=== PATIENT | female | born 1980 | race Caucasian/White ===

== ENCOUNTER 2024-08-23 12:37 | Outpatient (REF) | payer MEDICAID, SELFPAY ==
--- OUTSIDE RECORDS SUMMARY | 2024-08-23 12:42 | XMS_ITS | Encounter Summary ---
Author Organization [facility] Address [address] [place] [address] Care Team Providers Care Creative Intern Name Role Phone Krzysztof Espinal [employer] Primary Care Provider [phone] Encounter Details Date Type Department Care Team ([facility] st Contact Info) Description 08/18/2024 Interim Notes Caring [facility] Main [address] [place] [phone] Krzysztof Espinal NP [address] [place] [phone] Social History Tobacco Use Types Packs/Day Years Used Date Smoking Tobacco: Never Smokeless Tobacco: Never Alcohol Use Standard Drinks/Week Comments Never 0 (1 standard drink = 0.6 oz pur e alcohol) Social Connections Answer Date Recorded Connectedness 2 02/10/2024 Financial Resource Strain Answer Date R ecorded Financial Resource Strain 2 2023 Stress Answer Date Recorded Stress 2 02/10/2024 Physical Activity Answer Date Recorded Physical Activity 0 11/22/2023 Food Insecurity Answer Date Recorded Food 2 02/10/2024 Transportation Needs Answer Date Record ed Transportation 2 02/10/2024 Housing Stability Answer Date Recorded Housing 2 02/10/2024 Safety and Environment Answer Date Elvis rded Safety 0 11/22/2023 Utilities Answer Date Recorded Utilities 2 02/10/2024 Employment Answer Date Recorded Stress 0 12/08/2023 Comments Unknown Sex and Gender Information Value Date Recorded Sex Assigned at Female 11/03/2023 12:30 PM PDT Legal Sex Female 8:56 PM PST Gender Identity Female 11/03/2023 12:30 PM PDT Sexual Orientation Straight 11/03/2023 12 :30 PM PDT documented as of this encounter Progress Notes * Krzysztof Espinal NP - 08/18/2024 2:20 PM EDT Notes faxed to [employer]. documented in this encounter Plan of Treatment Upcoming Encounters Date Type Department Care Team (Late st Contact Info) Description 08/29/2024 10:40 AM EDT Office Visit [facility] [address] [place] [phone] Eloy Cortez, RD [address] [place] [address] 09/04/2024 10:00 AM EDT /MH Visits [facility] [address] [place] [phone] Harmony Barker LMHC [address] [place] [address] 09/06/2024 8:00 AM EDT Interim Notes [facility] [address] [place] [phone] 09/06/2024 8:40 AM EDT Office Visit [facility] [address] [place] [phone] Mily Kim DO [address] [place] [address] 09/06/2024 9:40 AM EDT Interim Notes [facility] [address] [place] [phone] documented as of this encounter Visit Diagnoses Not on filedocumented in this encounter Additional Health Concerns Assessment Noted Time PHQ-9 Depression Total Score: 20 08/2 024 4:54 PM PDT documented as of this encounter Care Teams Creative Intern Relationship Specialty Start [place] [address] [place] [id number] PCP - General Family Medicine, [employer] 01/29/24 documented as of this encounter
[2024-08-23 13:06] LABS: MANUAL DIFF FLAG NO
[2024-08-23 13:30] LABS: Basophils Absolute Auto 0.1 X10*3/uL (0.0-0.2); Basophils Percent Auto 0.6 % (0-2); Eosinophils Absolute Auto 0.2 X10*3/uL (0.0-0.4); Eosinophils Percent Auto 2.1 % (0-4); Hematocrit 38.6 % (37.0-47.0); Imm Gran Abs Auto 0.03 X10*3/uL (0.00-0.03); Imm Gran Pct Auto 0.3 % (0.0-0.4); Lymphocytes Percent Auto 22.5 % (20-40); Mean Corpuscular HGB Conc 33.7 g/dl (31.0-35.0); Mean Corpuscular Volume 95.1 fL (80.0-98.0); Mean Platelet Volume 11.3 fL (9.4-12.3); Monocytes Absolute Auto 0.5 X10*3/uL (0.1-1.2); Monocytes Percent Auto 5.9 % (2-11); Neutrophils Percent Auto 68.6 % (45-73); Platelet Count 212 X10*3/uL (160-400); Red Blood Count 4.06 X10*6/uL (4.20-5.50); White Blood Count 8.7 X10*3/uL (4.8-10.8)
[2024-08-23 13:36] LABS: Estimated Average Glucose 100 mg/dL; Hemoglobin A1C 112.3939 umol/L; Hemoglobin A1c % 5.1 % (<6.0); Total Hemoglobin (HGBA1C) 3440.5112 umol/L
[2024-08-23 13:56] LABS: Rheumatoid Factor < 13.0 IU/mL (<15.0)
[2024-08-23 13:59] LABS: Parathyroid Hormone Intact 46.1 pg/mL (8.7-77.1)
[2024-08-23 14:06] LABS: Alanine Aminotransferase 22 U/L (0-31); Albumin Level 4.3 g/dL (3.5-5.0); Alkaline Phosphatase 54 U/L (39-117); Anion Gap 9 (12-20); Aspartate Amino Transferase 21 U/L (5-31); Bilirubin Total 0.8 mg/dL (0.0-1.0); Blood Urea Nitrogen 11 mg/dL (9-16); C Reactive Protein 0.11 mg/dL (< or = 0.50); Calcium 9.4 mg/dL (8.4-10.2); Carbon Dioxide 31 mmol/L (22-29); Chloride 104 mmol/L (96-108); Estimated Glomerular Filt Rate > 60; Glucose Random 104 mg/dL (60-115); Phosphorus 3.4 mg/dL (2.7-4.5); Potassium 3.9 mmol/L (3.3-5.1); Sodium 140 mmol/L (135-145); Total Protein 6.9 g/dL (6.5-8.0)
[2024-08-23 14:12] LABS: Erythrocyte Sedimentation Rate 5 MM/HR (0-20)
[2024-08-23 14:22] LABS: Syphilis Screen Nonreactive (Nonreactive)
[2024-08-23 14:25] LABS: Folate 12.1 ng/mL (> or = 4.0); Vitamin B12 387 pg/mL (200-900)
[2024-08-23 14:31] LABS: Free T4 (Free Thyroxine) 0.88 ng/dL (0.71-1.85); Thyroid Stimulating Hormone 1.48 uIU/mL (0.32-4.0); Vitamin D 25-OH Total 41.1 ng/mL (>30)
[2024-08-23 15:15] LABS: CT PCR NOT DETECTED (Not Detect.); NG PCR NOT DETECTED (Not Detect.)
[2024-08-24 06:48] LABS: Lyme Abs Screen <0.90 index
[2024-08-24 16:28] LABS: Homocysteine 8.4 umol/L (< or = 11.0)
[2024-08-28 15:09] LABS: Vitamin B1 25 nmol/L (8-30)
[2024-08-30 15:14] LABS: Anti Nuclear Antibody Screen POSITIVE (NEGATIVE); Anti Nuclear Antibody Titer 1:40 titer
== END 2024-08-23 12:38 | disposition home or self-care (01) ==
LOC: HO.LAB 12:37
PROVIDERS: Visit Provider Psychiatry & Neurology Psychiatry
DX: F39 Unspecified mood [affective] disorder (principal); M25.50 Pain in unspecified joint
CPT/HCPCS: 80053; 82306; 82607; 82746; 83036; 83090; 83735; 83970; 84100; 84425; 84439; 84443; 85025; 85652; 86038; 86039; 86140; 86431; 86617; 86618; 86780; 87491; 87591

== ENCOUNTER 2024-11-13 12:37 | Outpatient (AMB) | payer MEDICAID, SELFPAY ==
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
--- OUTSIDE RECORDS SUMMARY | 2024-11-13 13:49 | XMS_ITS | Clinical Summary ---
Author Organization [employer] Address [address] [facility] [address] [place] [address] Care Team Providers Care [employer] Head Inspector Name Role Phone Unavailable Primary Care Provider Unavailabl e Encounters Date Type Department Care Team Description 10/16/2024 Population Health Risk Score [facility] ([facility]) Department [address] [phone] Provider, Population Health Generic from Last 3 Months Social History Tobacco Use Types Packs/Day Years Used Date Smoking Tobacco: Never Assessed Comments Unknown Sex and Gender Information Value Date Recorded Sex Assigned at Not on file Legal Sex Female 9:32 PM EDT Gender Identity Not on file Sexual Orientation Not on file Plan of Treatment Health Maintenance Due Date Last Done Comments Depression Screening 1980 SDOH Screening 1980 Disability Screening 1980 Alcohol/Substance Use Screening 1992 Tobacco Screening 1992 Family Planning (PISQ) 01/27/1995 HPV Vaccines (1 - 3-dose series) 01/27/1995 Hepatitis C Screening 01/27/1998 DTaP/Tdap/Td Vaccines (1 - Tdap) 01/27/1999 Hepatitis B Vaccines (1 of 3 - 19+ 3-dose series) 01/27/1999 Pap Smear 01/27/2001 Cervical Cancer Screening 01/27/2010 HPV/Cotest 01/27/2010 Mammogram 2020 COVID-19 Vaccine ( - 2023-2 5 season) 2023 Influenza Vaccine (#1) 2024 Zoster Vaccines (1 of 2) 01/27/2030 RSV Patients and Patients Aged 60 years or older (1 - 1-dose 75+ series) 01/27/2055 Hepatitis A Vaccines Aged Out No long er eligible based on patient's age to complete this topic HIV Screening Completed 03/29/2024, 03/29/2024, 11/23/2023 HIB Vaccines Aged Out No longer eligi ble based on patient's age to complete this topic IPV Vaccines Aged Out No longer eligi ble based on patient's age to complete this topic Meningococcal B Vaccine Aged Out No l onger eligible based on patient's age to complete this topic Meningococcal Vaccine Aged Out No jose richie eligible based on patient's age to complete this topic Pneumococcal Vaccine: Pediatrics (0 to 5 Years) and At-Risk Patients (6 to 49) Years Aged Out No longer eligible b ased on patient's age to complete this topic RSV under 20 months Aged Out No longe r eligible based on patient's age to complete this topic Rotavirus Vaccines Aged Out No longer eligible based on patient's age to complete this topic
--- OUTSIDE RECORDS SUMMARY | 2024-11-13 13:49 | XMS_ITS | Clinical Summary ---
Author Organization [facility] Address [address] [place] [address] Phone Care Team Providers Care Orchard Manager Name Role Phone Teddy Krzysztof DENNIS Primary Care Provider [phone] Allergies Active Allergy Reactions Criticality Noted Date Comments Amitriptyline Hallucinations 09/06/2024 Levetiracetam Psychiatric 09/06/2024 Sulfa (Sulfonamide Antibiotics) 08/26 Active Problems No known active problems Encounters Date Type Department Care Team Description 10/30/2024 3:00 PM EDT Treatment Outpatient Rehabilitation - [address] [phone] Rosalie Cancino, FLIGHT DATA TECHNICIAN Shoulder impingement syndrome, right (Primary Dx); Spinal stenosis, cervical region 10/23/2024 3:00 PM EDT Treatment Outpatient [address] [phone] Rosalie Cancino, FLIGHT DATA TECHNICIAN Shoulder impingement syndrome, right (Primary Dx); Spinal stenosis, cervical region 10/18/2024 2:30 PM EDT Treatment Outpatient [address] [phone] Francesco Soriano, PT Shoulder impingement syndrome, right (Primary Dx) 10/16/2024 2:00 PM EDT Treatment Outpatient [address] [phone] Rosalie Cancino, FLIGHT DATA TECHNICIAN Spinal stenosis, cervical region (Primary Dx) 10/12/2024 12:30 PM EDT Treatment Outpatient Rehabilitation - [place] [phone] Weidler, Rosalie, FLIGHT DATA TECHNICIAN Spinal stenosis, cervical region (Primary Dx) 10/10/2024 1:00 PM EDT Treatment Outpatient Rehabilitation [address] [phone] Weidler, Rosalie, FLIGHT DATA TECHNICIAN Spinal stenosis, cervical region (Primary Dx) 10/05/2024 2:00 PM EDT Treatment Outpatient Rehabilitation [address] [phone] Bo, Francesco, PT Spinal stenosis, cervical region (Primary Dx) 10/01/2024 5:00 PM EDT Treatment Outpatient Rehabilitation [address] [phone] Bo, Francesco, PT Spinal stenosis, cervical region (Primary Dx) 09/26/2024 3:00 PM EDT Treatment Outpatient Rehabilitation - [address] [phone] Weidler, Rosalie, FLIGHT DATA TECHNICIAN Spinal stenosis, cervical region (Primary Dx) 09/20/2024 4:00 PM EDT Treatment Outpatient [address] [phone] Weidler, Rosalie, FLIGHT DATA TECHNICIAN Spinal stenosis, cervical region (Primary Dx) 09/14/2024 3:00 PM EDT Treatment Outpatient [address] [phone] Weidler, Rosalie, FLIGHT DATA TECHNICIAN Spinal stenosis, cervical region (Primary Dx) 09/07/2024 2:30 PM EDT Treatment Outpatient Rehabilitation [address] [phone] Weidler, Rosalie, FLIGHT DATA TECHNICIAN Spinal stenosis, cervical region (Primary Dx) 09/07/2024 2:11 AM EDT - 09/07/2024 8:19 AM EDT Emergency [facility] Emergency [address] [place] [id number] Head injury, initial encounter (Primary Dx) Discharge Disposition: Home or Self Care 09/05/2024 12:30 PM EDT Treatment Outpatient Rehabilitation - [address] [phone] Bo Francesco, PT Spinal stenosis, cervical region (Primary Dx) 08/27/2024 3:00 PM EDT Treatment Outpatient [facility] - [address] [phone] Rosalie Cancino, FLIGHT DATA TECHNICIAN Spinal stenosis, cervical region (Primary Dx) 08/23/2024 3:30 PM EDT Evaluation Outpatient [facility] - [address] [phone] Bo Francesco, PT Spinal stenosis, cervical region (Primary Dx); Adhesive capsulitis of right shoulder from Last 3 Months Social History Tobacco Use Types Packs/Day Years Used Date Smoking Tobacco: Never Assessed Comments Unknown Sex and Gender Information Value Date Recorded Sex Assigned at Not on file Legal Sex Female 3:42 PM EDT Gender Identity Not on file Sexual Orientation Not on file Last Filed Vital Signs Vital Sign Reading Time Taken Comments Blood Pressure 94/62 09/07/2024 2:28 AM EDT Pulse 63 09/07/2024 2:28 AM EDT Temperature 36.6 C (97.9 F) 09/07/2024 2:28 AM EDT Respiratory Rate 18 09/07/2024 6:50 AM EDT Oxygen Saturation 98% 09/07/2024 2:28 AM EDT Inhaled Oxygen Concentration - - Weight 65.8 kg (145 lb) 09/06/2024 8:20 PM EDT Height 152.4 cm (5') 09/06/2024 8:20 PM EDT Body Mass Index 28.32 09/06/2024 8:20 PM EDT Plan of Treatment Health Maintenance Due Date Last Done Comments Breast Cancer Screening 1980 DTaP,Tdap,and Td Vaccines (1 - Tdap) 01/27/1999 Hepatitis B Vaccines (1 of 3 - 19+ 3-dose series) 01/27/1999 Cervical Cancer Screening: P ap Smear 01/27/2001 COVID-19 Vaccine (2023-2 5 season) 2023 HIV Screening 01/04/2024 Social Influencers of Health Screening 01/04/2024 Depression Screening 03/28/2024 Influenza Vaccine (#1) 2024 Cholesterol Screening (Lipid Panel) 01/24/2029 01/25/2024, 01/25/2024 Hepatitis A Vaccines Aged Out No long er eligible based on patient's age to complete this topic MMR Vaccines Aged Out No longer eligi ble based on patient's age to complete this topic Hepatitis C Screening Completed 01/25/2024 HIB Vaccines Aged Out No longer eligi ble based on patient's age to complete this topic HPV Vaccines Aged Out No longer eligi ble based on patient's age to complete this topic IPV Vaccines Aged Out No longer eligi ble based on patient's age to complete this topic Meningococcal ACWY Vaccine Aged Out N o longer eligible based on patient's age to complete this topic Meningococcal B Vaccine Aged Out No l onger eligible based on patient's age to complete this topic Pneumococcal Vaccine: Pediatrics (0 to 5 Years) and At-Risk Patients (6 to 49 Years) Aged Out No longer eligible b ased on patient's age to complete this topic RSV Immunization Patients Under 20 months Aged Out No longer eligible b ased on patient's age to complete this topic Varicella Vaccines Aged Out No longer eligible based on patient's age to complete this topic Goals Goal Patient Goal Type Associated Problems Recent Progress Patient-Stated? Author LTG's 12 visits General Yes Francesco Soriano, PT Note: 10/18/2024 Pt will demonstrate R active shoulder flexion of 170 or better for overhead IADL's. Pt will demonstrate combined right shoulder extension, adduction and IR to T12 or better for dressing behind back. Pt will demonstrate a 1 grade of better increase in R shoulder/scap stabilizer strength deficits to max functional use of R UE. Pt will report neck pain of no more than 2/10 when carrying laundry/groceries. Pt will demonstrate cervical extension of 50 degrees or better for overhead IADL's and cervical rotations of 70 degrees or better. Pt will demonstrate DNFET of 28 seconds or better. Pt will be Independent and compliant with final HEP. Procedures Procedure Name Priority Date/Time Associated Diagnosis Comments CT HEAD WO CONTRAST STAT 09/07/2024 4 :19 AM EDT CBC WITH AUTO DIFFERENTIAL STAT 09/07/2024 3:08 AM EDT CBC AND DIFFERENTIAL STAT 09/07/2024 3:08 AM EDT HCG, SERUM, QUALITATIVE STAT 09/07/2024 3:08 AM EDT COMPREHENSIVE METABOLIC PANEL STAT 09/07/2024 3:08 AM EDT from Last 3 Months Results * CT Head wo Contrast (09/07/2024 4:19 AM EDT) Anatomical Region Laterality Modality Head and Neck Computed Tomogra phy 09/07/2024 4:51 AM EDT Impressions 09/07/2024 4:51 AM EDT 1. No acute intracranial findings. This document has been electronically signed by: Kenny Lee MD on 09/07/2024 04:51:02 Narrative 09/07/2024 4:51 AM EDT INDICATION: Head trauma, minor, normal mental status (Age 19-64y) CT head without contrast Comparison: None Findings: I do not see evidence for acute intracranial hemorrhage, midline shift or mass effect. The skull appears intact. The visualized paranasal sinuses and mastoid air cells are aerated. Procedure Note Kenny Lee - 09/07/2024 INDICATION: Head trauma, minor, normal mental status (Age 19-64[address]) CT head without contrast Comparison: None Findings: I do not see evidence for acute intracranial hemorrhage, midline shiftor mass effect. The skull appears intact. The visualized paranasal sinuses and mastoid air cells are aerated. IMPRESSION: 1. No acute intracranial findings. This document has been electronically signed by: Kenny Lee MD on 09/07/2024 04:51:02 [facility] [place]ED[place] Final Result * (ABNORMAL) CBC auto differential (09/07/2024 3:08 AM EDT) [facility] WBC 8.2 4.8 - 10.8 K/mcL LAB HEMETOLOGY METHOD 09/07/2024 3:29 AM [facility] RBC 4.00 3.80 - 4.80 M/mcL LAB HEMETOLOGY METHOD 09/07/2024 3:29 AM [facility] Hemoglobin 12.7 11.5 - 16.0 g/dL LAB HEMETOLOGY METHOD 09/07/2024 3:29 AM [facility] Hematocrit 38.9 35.0 - 47.0 % LAB HEMETOLOGY METHOD 09/07/2024 3:29 AM [facility] MCV 96.5 79.0 - 98.0 FL LAB HEMETOLOGY METHOD 09/07/2024 3:29 AM [facility] MCH 31.5 27.0 - 32.0 pcg LAB HEMETOLOGY METHOD 09/07/2024 3:29 AM [facility] MCHC 32.6 32.0 - 37.0 g/dL LAB HEMETOLOGY METHOD 09/07/2024 3:29 AM [facility] RDW 12.2 11.0 - 15.0 % LAB HEMETOLOGY METHOD 09/07/2024 3:29 AM [facility] Platelets 199 130 - 400 K/mcL LAB HEMETOLOGY METHOD 09/07/2024 3:29 AM [facility] MPV 11.2(H) 7.0 - 11.0 FL LAB HEMETOLOGY METHOD 09/07/2024 3:29 AM [facility] NRBC 0.0 <1.0 % LAB HEMETOLOGY METHOD 09/07/2024 3:29 AM [facility] NRBC Absolute 0.00 <0.10 K/mcL LAB HEMETOLOGY METHOD 09/07/2024 3:29 AM [facility] Neutrophils Relative 59.4 % LAB HEMETOLOGY METHOD 09/07/2024 3:29 AM [facility] Lymphocytes Relative 25.9 % LAB HEMETOLOGY METHOD 09/07/2024 3:29 AM [facility] Monocytes Relative 10.6 % LAB HEMETOLOGY METHOD 09/07/2024 3:29 AM [facility] Eosinophils Relative 3.4 % LAB HEMETOLOGY METHOD 09/07/2024 3:29 AM [facility] Basophils Relative 0.5 % LAB HEMETOLOGY METHOD 09/07/2024 3:29 AM [facility] Immature Granulocytes Relative 0.2 % LAB HEMETOLOGY METHOD 09/07/2024 3:29 AM [facility] Neutrophils Absolute 4.88 1.50 - 7.00 K/mcL LAB HEMETOLOGY METHOD 09/07/2024 3:29 AM [facility] Lymphocytes Absolute 2.13 1.00 - 5.00 K/mcL LAB HEMETOLOGY METHOD 09/07/2024 3:29 AM [facility] Monocytes Absolute 0.87 0.20 - 1.00 K/mcL LAB HEMETOLOGY METHOD 09/07/2024 3:29 AM [facility] Eosinophils Absolute 0.28 0.00 - 0.50 K/mcL LAB HEMETOLOGY METHOD 09/07/2024 3:29 AM [facility] Basophils Absolute 0.04 0.00 - 0.20 K/mcL LAB HEMETOLOGY METHOD 09/07/2024 3:29 AM [facility] Immature Granulocytes Absolute 0.02 0.00 - 0.03 K/mcL LAB HEMETOLOGY METHOD 09/07/2024 3:29 AM EDT [facility] Blood Venous blood specimen / Unknown Venipuncture / Unknown 09/07/2024 3:08 AM EDT 09/07/2024 3:20 AM EDT [facility] BLOOD ORDERABLES Final Resul t Performing Organization Address [facility]/ZIP Co de Phone Number [facility] [address] [place] [address], [place] [phone] * hCG Qualitative (09/07/2024 3:08 AM EDT) Pathologist [facility] hCG Qual Negative Negative 09/07/2024 3:51 AM EDT [facility] Blood Venous blood specimen / Unknown Venipuncture / Unknown 09/07/2024 3:08 AM EDT 09/07/2024 3:20 AM EDT [facility] BLOOD ORDERABLES Final Resul t Performing Organization Address [facility] de Phone Number [facility] [address] [place] [address], [place] [phone] * Comprehensive Metabolic Panel (CMP) (09/07/2024 3:08 AM EDT) [facility] Sodium 141 133 - 145 mmol/L LAB CHEMISTRY METHOD 09/07/2024 3:53 AM EDT [facility] Potassium 4.1 3.5 - 5.5 mmol/L LAB CHEMISTRY METHOD 09/07/2024 3:53 AM T [facility] Chloride 107 96 - 110 mmol/L LAB CHEMISTRY METHOD 09/07/2024 3:53 AM T [facility] CO2 30 21 - 32 mmol/L LAB CHEMISTRY METHOD 09/07/2024 3:53 AM T [facility] Anion Gap 4 3 - 11 LAB CHEMISTRY METHOD 09/07/2024 3:53 AM EDT [facility] Glucose 96 70 - 100 mg/dL LAB CHEMISTRY METHOD 09/07/2024 3:53 AM [facility] BUN 13 5 - 25 mg/dL LAB CHEMISTRY METHOD 09/07/2024 3:53 AM [facility] Creatinine 0.75 0.50 - 1.10 mg/dL LAB CHEMISTRY METHOD 09/07/2024 3:53 AM [facility] eGFR 101 >=60 mL/min/1. 73m2 LAB CHEMISTRY METHOD 09/07/2024 3:53 AM [facility] Comment:Calculation based on the Chronic Kidney Disease Epidemiology Collaboration (CKD-EPI) equation refit without adjustment for race. BUN/Creatinine Ratio 17.3 LAB CHEMISTRY METHOD 09/07/2024 3:53 AM [facility] Calcium 9.1 8.5 - 10.5 mg/dL LAB CHEMISTRY METHOD 09/07/2024 3:53 AM [facility] AST (SGOT) 15 10 - 42 unit/L LAB CHEMISTRY METHOD 09/07/2024 3:53 AM [facility] ALT (SGPT) 22 10 - 60 unit/L LAB CHEMISTRY METHOD 09/07/2024 3:53 AM [facility] Alkaline Phosphatase 56 42 - 121 unit/L LAB CHEMISTRY METHOD 09/07/2024 3:53 AM [facility] Total Protein 6.5 6.0 - 8.0 g/dL LAB CHEMISTRY METHOD 09/07/2024 3:53 AM [facility] Albumin 3.6 3.2 - 5.0 g/dL LAB CHEMISTRY METHOD 09/07/2024 3:53 AM [facility] Total Bilirubin 0.7 0.0 - 1.4 mg/dL LAB CHEMISTRY METHOD 09/07/2024 3:53 AM [facility] Blood Venous blood specimen / Unknown Venipuncture / Unknown 09/07/2024 3:08 AM EDT 09/07/2024 3:20 AM EDT us [facility] BLOOD ORDERABLES Final Resul t [facility] ([facility] [address] [place] [address], [place] [phone] from Last 3 Months Insurance MEDICAID - [place] Care Teams Orchard Manager Relationship Specialty Start Date End Date Krzysztof Espinal NP [address] [place] [address] PCP - General Family Medicine 09/07/24
--- OUTSIDE RECORDS SUMMARY | 2024-11-13 13:49 | XMS_ITS | Clinical Summary ---
Author Organization [facility] Address [address] [place] [address] Phone Care Team Providers Care Correctional Cook Name Role Phone Krzysztof Espinal JEANNIE Primary Care Provider [phone] Encounters Date Type Department Care Team Description 08/30/2024 [place] [facility] [place] [address], [address] [place] [address] Caleb Kevin from Last 3 Months Social History Tobacco Use Types Packs/Day Years Used Date Smoking Tobacco: Never Assessed Comments Unknown Sex and Gender Information Value Date Recorded Sex Assigned at Not on file Legal Sex Female 1:26 PM EST Gender Identity Not on file Sexual Orientation Not on file Plan of Treatment Not on file Medical Devices Not on file Insurance [facility] [employer] [facility] [facility] [facility] [facility] [employer] [facility] Care Teams Correctional Cook Relationship Specialty Start Date End Date Krzysztof Espinal NP PCP - General Nurse Practitioner 04/13/24 Additional Source Comments The information contained in this document represents components of the legal health record. It is not the complete legal health record.[facility]
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
== END 2024-11-13 13:27 | disposition home or self-care (01) ==
LOC: HO.HSM 12:37
PROVIDERS: Visit Provider Psychiatry & Neurology Neurology
DX: S06.9XAA Unspecified intracranial injury with loss of consciousness status unknown, initial encounter (principal); F43.10 Post-traumatic stress disorder, unspecified; R56.1 Post traumatic seizures
CPT/HCPCS: 99214

== ENCOUNTER → 2024-11-13 12:37 | Outpatient (BNVA) | payer MEDICAID, SELFPAY | PROVIDERS: Visit Provider Psychiatry & Neurology Neurology | DX: R42 Dizziness and giddiness (principal); R56.1 Post traumatic seizures; F43.10 Post-traumatic stress disorder, unspecified; Z87.820 Personal history of traumatic brain injury | CPT/HCPCS: 99212 ==

== ENCOUNTER 2025-01-23 14:37 | Outpatient (AMB) | payer MEDICAID, SELFPAY ==
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
--- OUTSIDE RECORDS SUMMARY | 2025-01-23 19:00 | XMS_ITS | Clinical Summary ---
Author Organization [employer] Address [address] [place] [address] [address] [place] [address] Care Team Providers Care Furniture Upholsterer Name Role Phone Unavailable Primary Care Provider Unavailabl e Social History Tobacco Use Types Packs/Day Years [...] COVID-19 Vaccine ( - 2023-2 5 season) 2024 Influenza Vaccine (#1) 2024 Zoster Vaccines (1 of 2) 01/27/2030 RSV Patients and Patients Aged 60 years or older (1 - 1-dose 75+ series) 01/27/2055 Hepatitis A Vaccines Aged Out No long er eligible based on patient's age to complete this topic HIV Screening Completed 03/29/2024, 11/23/2023 HIB Vaccines Aged Out No [...]
--- OUTSIDE RECORDS SUMMARY | 2025-01-23 19:00 | XMS_ITS | Clinical Summary ---
Author Organization [facility] Address [address] [place] [address] Phone Care Team Providers Care Computer Forensics Examiner Name Role Phone Teddy Ruizjudah JEANNIE Primary Care Provider [phone] Allergies Active Allergy Reactions Criticality Noted Date Comments Amitriptyline Hallucinations 09/06/2024 Levetiracetam Psychiatric 09/06/2024 Sulfa (Sulfonamide Antibiotics) 08/26 Active Problems No known active problems Encounters Date Type Department Care Team Description 10/30/2024 3:00 PM EDT Treatment Outpatient Rehabilitation - [address] [phone] Rosalie Cancino, PROTECTION ANALYST Shoulder impingement syndrome, right (Primary Dx); Spinal stenosis, cervical region 10/23/2024 3:00 PM EDT Treatment Outpatient [facility] - [address] [phone] Rosalie Cancino, PROTECTION ANALYST Shoulder impingement syndrome, right (Primary Dx); Spinal stenosis, cervical region from Last 3 Months Social History Tobacco [...] Cervical Cancer Screening: P ap Smear 01/27/2001 HPV Vaccines (1 - 3-dose SCD M series) 01/27/2007 HIV Screening 01/04/2024 Social Influencers of Health Screening 01/04/2024 Depression Screening 03/28/2024 COVID-19 Vaccine (1 - 2023-2 5 season) 2024 Influenza Vaccine (#1) 2024 Cholesterol Screening (Lipid Panel) 01/24/2029 01/25/2024, 01/25/2024 RSV Immunization Adult Patients (1 - 1-dose 75+ series) 01/27/2055 Hepatitis [...] be Independent and compliant with final HEP. Insurance MEDICAID - [place] Care Teams Computer Forensics Examiner Relationship Specialty Start Date End Date Krzysztof Espinal NP [address] [place] [address] PCP - General Family Medicine 09/07/24
--- OUTSIDE RECORDS SUMMARY | 2025-01-23 19:00 | XMS_ITS | Clinical Summary ---
Author Organization [facility] Address [address] [place] [address] Care Team Providers Care Collections Specialist Name Role Phone Teddy Krzysztof DENNIS Primary Care Provider [phone] Source Comments PLEASE NOTE, if this patient is a minor, it may be UNLAWFUL to discuss sensitive information that is contained in these records (such as FAMILY PLANNING, MENTAL HEALTH or SUBSTANCE ABUSE) with the minor patient's parent or other person without the patient's specific authorization.[facility] Allergies Active Allergy Reactions Criticality Noted Date Comments Alcohol 01/25/2024 Amitriptyline Hallucinations 01/25/2024 Nitrofurantoin Monohyd/M-Cryst 01/24 Sulfa (Sulfonamide Antibiotics) 12/28 Possible rash Medications lacosamide (VIMPAT) 50 mg tabIndications: Seizures Take 1 Tablet by mouth 2 (two) times daily. Max Daily Amount: 100 mg 180 Tablet 09/25/2024 Active magnesium oxide (MAG-OX) 400 mg (241.3 mg magnesium) tablet Take 1 Tablet by mouth once daily. 90 Tablet 1 09/25/2024 Active magnesium citrate 125 mg cap Take 1 Capsule by mouth daily. 90 Capsule 1 09/25/2024 Active magnesium glycinate 100 mg magnesium cap Take 1 Capsule by mouth once daily. 90 Capsule 1 10/09/2024 Active turmeric root extract 500 mg tab Take 500 mg by mouth daily. 90 Tablet 1 10/18/2024 Active pregabalin (LYRICA) 50 mg capsule Take 1 Capsule by mouth 2 (two) times daily. 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 No treatment is indicated at this time. RTC 4 for DFE. History of mammogram 10/10/2024 Overview (10/10/2024): 10/02/24 Mammogram [facility] IMPRESSION: Right breast: Multiple asymmetries and [...] status migrainosus, not intract able 01/25/2024 Seizures 01/25/2024 Overview (01/25/2024): During hospitlization with menigitus Cervical spine arthritis 01/25/2024 Concussion 01/25/2024 Housing insecurity 01/25/2024 History of bacterial meningitis 01/25/2024 Assessment & Plan (01/25/2024 2:54 PM EDT): 2017-was hospitalized with bacterial meningitis and received treatment Acute pain of both shoulders 01/25/2024 Encounters Date Type Department Care Team Description 11/23/2024 Interim Notes On License Of [facility] [address] [place] [id number] Kunal Rojas 10/31/2024 11:00 AM EDT Office Visit On License Of [facility] [address] [place] [address] Rafael Forte FNP from Last 3 Months Immunizations Immunization Administration [...] Due Date Last Done Comments HPV Screening (self-collect) 1980 HPV Screening 1980 STI Counseling 1980 Relationship Safety Screening/Counseling 01/27/1995 Imm-DTaP/Tdap/Td (1 - Tdap) 01/27/1999 Imm-Hepatitis B (1 of 3 - 19 + 3-dose series) 01/27/1999 Imm-HPV (1 - 3-dose SCDM series) 01/27/2007 Depression Monitoring 02/23/2024 11/23/2023 Alcohol and Drug Screen 03/28/2024 01/25/2024 Anxiety Screening 11/22/2024 11/23/2023 [id number] ( season) 2024 Imm-Influenza (#1) 2024 Annual Wellness (Adult): Ind icated (All Coverage) 01/24/2025 01/25/2024 Hypertension Screening (#1) 10/31/2025 Tobacco Screening 11/01/2025 11/01/2024 Breast Cancer Screening (Mammogram) 11/16/202611/16, 10/02/2024 Pap Smear 03/29/2027 03/29/2024 Diabetes Screening 09/08/2027 09/07/2024, 1 , 01/25/2024 Lipid Screening 01/24/2029 01/25/2024 Cervical Cancer Screening 03/29/2029 Pap + HPV 03/29/2029 03/29/2024 Hepatitis C Screening Completed 01/25/2024 HIV Screening Completed 03/29/2024, 11/23/2023 Cervical Ablation/Cold-Knife Conization Discontinued Cervical Cryotherapy Discontinued Colposcopy Discontinued Excision/Leep Discontinued HPV Genotyping Discontinued Vaginal Pap Discontinued Vulvoscopy Discontinued Procedures Procedure Name Priority Date/Time Associated Diagnosis Comments REFERRAL TO HOME HEALTH CARE Routine 12/28/2024 3:00 AM EDT Anxiety Mild episode of depression Migraine without status migrainosus, not intractable, unspecified migraine type Seizures Concussion with unknown loss of consciousness status, subsequent encounter REFERRAL TO OPHTHALMOLOGY Routine 12/18/2024 3:00 AM EDT Screening for eye condition HISTORIC MAMMOGRAM 11/16/2024 3: 00 AM EDT HIV 1/2 AG & AB W/RFLX (4TH [...] Recently Relevant to Health Maintenance Results * REFERRAL TO HOME HEALTH CARE (12/28/2024 3:00 AM EDT) 12/28/2024 3:00 AM EDT Krzysztof Espinal POTATO CHIP SORTER REFERRAL Final Result * REFERRAL TO OPTHALMOLOGY (12/18/2024 3:00 AM EDT) 12/18/2024 3:00 AM EDT Krzysztof Espinal POTATO CHIP SORTER REFERRAL Final Result * HISTORIC MAMMOGRAM (11/16/2024 3:00 AM EDT) 11/16/2024 3:00 AM EDT Rafael Forte ROLLER COASTER OPERATOR IMG MAMMO Final Res ult * HIV 1/2 AG & AB W/RFLX (4TH GEN) (03/29/2024 11:38 AM EST) HIV AG/AB, 4TH GEN NON-REAC TIVE NON-REAC TIVE [facility] Comment: HIV-1 antigen and HIV-1/HIV-2 antibodies were [...] purpose. For additional information please refer to http://education.[employer]./faq/BCT473 (This link is being provided for informational/ educational purposes only.) The performance of this assay has not been clinically validated in patients less than 2 years old. Blood Blood / Unknown 03/29/2024 1 1:38 AM EST 03/29/2024 11:39 AM EST us Mily Formisano DO LAB - BLOOD DRAW Final Result [facility] [address] [place] [address], [facility] [address] [place] [phone] * [facility] PAP, HPV MRNA E6/E7 RFLEX HPV 16,18/45 CT/NG (03/29/2024 11:04 AM EST) CHLAMYDIA TRACHOMATIS RNA, TMA NOT DETECTED NOT DETECTED [facility] NEISSERIA GONORRHOEAE RNA, TMA NOT DETECTED NOT DETECTED [facility] COMMENT [facility] CLINICAL INFORMATION See Note [facility] Comment:None given LMP See Note [facility] Comment:NONE GIVEN PREV. PAP See Note [facility] Comment:NONE GIVEN PREV. BX See Note [facility] [employer] [facility] Comment:NONE GIVEN SOURCE See Note [facility] Comment:Cervix STATEMENT OF ADEQUACY See Note [facility] [employer] [facility] Comment: Satisfactory for evaluation. Endocervical/transformation zone component absent. INTERPRETATION/RESU LT See Note [employer] Comment: Cytology Results: Negative for intraepithelial lesion or malignancy. COMMENT See Note [employer] [facility] Comment: This Pap test has been evaluated with computer assisted technology. BALL SORTER See Note [facility] Comment: SL, CT(ASCP) CT screening location: [address] [address] COMMENT [facility] HPV MRNA E6/E7 Not Detected Not Detected [facility] Comment: Methodology: Event Marketing Assistant-Mediated Amplification This assay detects E6/E7 viral messenger RNA (mRNA) from 14 high-risk HPV types (16,18,31,33,35,39,45,51,52,56,58,59,66,68). Cervical sources are required for HPV testing. If a vaginal source from a patient who has had a total hysterectomy with removal of cervix was submitted, please contact the testing laboratory for alternative testing options. For additional information, please refer to http://[email or web address]./faq/RJO766r9 (This link if provided for information/ educational purposes only.) Swab Cervix uteri structure / Unknown 03/29/2024 11:04 AM EST 03/30/2024 3:10 AM EST Narrative [facility] - 04/01/2024 12:56 PM EST EXPLANATORY NOTE: [...] test SurePath(TM) specimens have been determined by [facility]. The modifications have not been cleared or approved by the FDA. This assay has been validated pursuant to the CLIA regulations and is used for clinical purposes. For additional information, please refer to https://eWise.[employer]./faq/YHW291 (This link is being provided for information/ educational purposes only.) us Mily Formisano DO LAB - PATHOLOGY AND CYTOLOGY A MBULATORY Final Result [facility] [address] [address], [facility] [address] [address] * HEPATITIS C AB W/RFLX HCV RNA, QT, RT PCR (01/25/2024 2:52 PM EDT) Pathologist [facility] HEPATITIS C ANTIBODY NON-REACT LEV NON-REACT LEV [facility] Comment: HCV antibody was non-reactive. There is no laboratory evidence of HCV infection. In most cases, no further action is required. However, if recent HCV exposure is suspected, a test for HCV RNA (test code 26742) is suggested. For additional information please refer to http://eWise.[email or web address]./faq/INZ99w8 (This link is being provided for informational/ educational purposes only.) Blood Blood / Unknown 01/25/2024 2 :52 PM EDT 01/25/2024 2:53 PM EDT Narrative [facility] - 01/26/2024 6:53 AM EDT FASTING:NO Krzysztof Espinal NP LAB - BLOOD DRAW Final Result [facility] [address] [address], [facility] [address] [address] * LIPID PANEL (01/25/2024 2:52 PM EDT) [facility] CHOLESTEROL, TOTAL 172 <200 mg/dL [facility] HDL CHOLESTEROL 72 > OR = 50 mg/dL [facility] TRIGLYCERIDES 32 <150 mg/dL [facility] LDL-CHOLESTEROL 91 99 mg/dL (calc) [facility] Comment: Reference range: <100 Desirable range <100 mg/dL for primary prevention; <70 mg/dL for patients with CHD or diabetic patients with > or = 2 CHD risk factors. LDL-C is now calculated using the Pro-Prasanna calculation, which is a validated novel method providing better accuracy than the Friedewald equation in the estimation of LDL-C. Pro ALMARAZ et al. LEI. 2013;310(19): 1297-4158 (http://education.[employer]/faq/PIH986) CHOL/HDLC RATIO 2.4 <5.0 (calc) [facility] NON-HDL CHOLESTEROL 100 <130 mg/dL (calc) [facility] Comment: For patients with diabetes plus 1 major ASCVD risk factor, treating to a non-HDL-C goal of <100 mg/dL (LDL-C of <70 mg/dL) is considered a therapeutic option. Blood Blood / Unknown 01/25/2024 2 :52 PM EDT 01/25/2024 2:53 PM EDT Narrative [facility] - 01/26/2024 6:53 AM EDT FASTING:NO Krzysztof Espinal NP LAB - BLOOD DRAW Final Result [facility] [address] [address], [facility] [address] [place] [address] * COMPREHENSIVE METABOLIC PANEL (01/25/2024 2:52 PM EDT) GLUCOSE 65 65 - 139 mg/dL [facility] Comment: Non-fasting reference interval UREA NITROGEN (BUN) 16 7 - 25 mg/dL [facility] CREATININE (blood) 0.69 0.50 - 0.99 mg/dL [facility] EGFR 110 > OR = 60 mL/min/1. 73m2 [facility] BUN/CREATININE RATIO SEE NOTE: [facility] Comment: Not Reported: BUN and Creatinine are within reference range. SODIUM 136 135 - 146 mmol/L [facility] POTASSIUM 4.5 3.5 - 5.3 mmol/L [facility] CHLORIDE 101 98 - 110 mmol/L [facility] CARBON DIOXIDE 29 20 - 32 mmol/L [facility] CALCIUM 9.5 8.6 - 10.2 mg/dL [facility] PROTEIN, TOTAL 7.0 6.1 - 8.1 g/dL [facility] ALBUMIN 4.5 3.6 - 5.1 g/dL [facility] GLOBULIN 2.5 1.9 - 3.7 g/dL (calc) [facility] ALBUMIN/GLOBULI N RATIO 1.8 1.0 - 2.5 (calc) [facility] BILIRUBIN, TOTAL 1.0 0.2 - 1.2 mg/dL [facility] ALKALINE PHOSPHATASE 48 31 - 125 U/L [facility] AST 17 10 - 30 U/L [facility] ALT 17 6 - 29 U/L [facility] Blood Blood / Unknown 01/25/2024 2 :52 PM EDT 01/25/2024 2:53 PM EDT Narrative [facility] - 01/26/2024 6:53 AM EDT FASTING:NO Krzysztof Espinal POTATO CHIP SORTER LAB - BLOOD DRAW Edited Result - Final [facility] [address] [address], [facility] [address] [place] [address] from Last 3 Months or Most Recently Relevant to Health Maintenance Insurance [employer] [facility] [employer] Care Teams Collections Specialist Relationship Specialty Start Date End Date Krzysztof Espinal NP [address] [place] [address] PCP - General Family Medicine, POTATO CHIP SORTER 01/29/24
--- OUTSIDE RECORDS SUMMARY | 2025-01-23 19:00 | XMS_ITS | Clinical Summary ---
Author Organization [facility] Address [address] [place] [address] Phone Care Team Providers Care Maintenance Person Name Role Phone Krzysztof Espinal JEANNIE Primary Care Provider [phone] Social History Tobacco Use Types Packs/Day Years Used Date Smoking Tobacco: Never Assessed Comments Unknown Sex and Gender Information Value Date Recorded Sex Assigned at Not on file Legal Sex Female 1:26 PM EST Gender Identity Not on file Sexual Orientation Not on file Plan of Treatment Not on file Medical Devices Not on file Insurance [facility] [employer] [facility] [employer] [facility] [employer] [facility] [employer] [employer] [facility] [employer] [facility] [employer] Care Teams Maintenance Person Relationship Specialty Start Date End Date Krzysztof Espinal NP PCP - General Nurse Practitioner 04/13/24 Additional Source Comments The information contained in this document represents components of the legal health record. It is not the complete legal health record.[facility]
== END 2025-01-23 15:24 | disposition home or self-care (01) ==
LOC: HO.HSM 14:38
PROVIDERS: Visit Provider Psychiatry & Neurology Neurology
DX: S06.9XAA Unspecified intracranial injury with loss of consciousness status unknown, initial encounter (principal); F43.10 Post-traumatic stress disorder, unspecified; R56.1 Post traumatic seizures
CPT/HCPCS: 99214

== ENCOUNTER 2025-01-23 17:11 | Outpatient (REF) | payer MEDICAID, SELFPAY ==
--- NOTE | ~2025-01-23 | MR_ITS ---
EXAM: MRI left ankle without contrast TECHNIQUE: Multiplanar multisequence imaging performed through a lower extremity joint without contrast. INDICATION: Twisting injury with left ankle sprain, anterior and Achilles region pain PRIOR: None FINDINGS: Achilles tendon / plantar fascia: There is intrasubstance delamination of Achilles tendon. The caudal extent of signal abnormality is 6 cm above to the calcaneus. The delamination tear extends cephalad to the gsmgi-hk-fnph on the ankle MRI, and is more than 5 cm in length. There is also fluid signal articulating the fat pad anterior to the region of the tear. Plantar fascia is intact and unremarkable. Lateral ankle ligaments: Syndesmotic ligaments are intact. Anterior talofibular ligament is thickened with increased signal. Calcaneofibular ligament is mildly thickened but appears intact. Posterior talofibular ligament demonstrates mildly increased signal and appears intact. Deltoid ligament complex: Deltoid ligament complex appears intact with increased signal in the deep central fibers. Ankle tendons: Peroneal, medial, and the anterior ankle tendons are intact without abnormal signal or size changes. Talar Dome: Talar dome is intact without evidence of an osteochondral lesion or other abnormality. Sinus tarsi: The physiologic architecture of sinus tarsi is preserved. Bone marrow: Bone marrow signal is physiologic. Articular cartilage: There are no articular cartilage defects. Soft Tissues: There is subtle edema within the distal flexor hallucis longus muscle and distal gastrocnemius muscles. 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 The caudal extent of the tear is 6 cm above the calcaneal tuberosity. The tear extends above the nawcl-xh-vwvf on the ankle MRI and is >5 cm in length. There is also a mild grade 1 strain of flexor hallucis longus muscle and distal gastrocnemius muscles. There is a grade 2 sprain of anterior talofibular ligament, and a grade 1 sprain of calcaneofibular and posterior talofibular ligaments. Electronically signed by: Jero Anderson MD 01/25/2025 11:11 AM EDT
== END 2025-01-23 17:12 | disposition home or self-care (01) ==
LOC: HO.MRI 17:11
DX: S93.402S Sprain of unspecified ligament of left ankle, sequela (principal)
CPT/HCPCS: 73721

== ENCOUNTER → 2025-01-23 17:14 | Outpatient (BNV) | payer MEDICAID, SELFPAY | PROVIDERS: Visit Provider Radiology Diagnostic Radiology | DX: S86.012A Strain of left Achilles tendon, initial encounter (principal) | CPT/HCPCS: 73721 ==